=== PATIENT | female | born 1940 | race Native Hawaiian/Other Pacific Islander ===

== ENCOUNTER 2022-03-08 11:01 | Emergency (ER) | payer OTHER ==
[~2022-03-08] VITALS: Ht 152.4 cm; Wt 40.8 kg
[2022-03-08 11:01] VITALS: BP 112/69; TEMP 97.9
[2022-03-08 12:03] LABS: PLATELET COUNT 384 K/uL (152-353)
[2022-03-08 12:10] LABS: POTASSIUM 3.7 mmol/L (3.6-5.2)
[2022-03-08] MEDS ORDERED: DOK100 M1 PO (15:04)
[2022-03-08] MEDS ORDERED: MIRALAX MIX-IN17 GM PO (15:04)
[2022-03-08] MEDS ORDERED: TRAMADOL HYDROC50 MG PO (15:05)
[2022-03-08] MEDS ORDERED: KLOR-CON M1010 MEQ PO (15:05)
[2022-03-08] MEDS ORDERED: SENNA PLUS 50-81 CAP PO (15:06)
== END 2022-03-08 13:00 | disposition other institution (70) ==
LOC: ED 11:01
PROVIDERS: Family Medicine
DX: F03.91 Unspecified dementia, unspecified severity, with behavioral disturbance (principal); F05 Delirium due to known physiological condition; Z91.83 Wandering in diseases classified elsewhere; K64.4 Residual hemorrhoidal skin tags; Z11.52 Encounter for screening for COVID-19; Z04.6 Encounter for general psychiatric examination, requested by authority
CPT/HCPCS: 80053; 80307; 81002; 85027; 87635; 93005; 99283; U0003

== ENCOUNTER 2022-03-25 10:12 | Inpatient (IN) | payer OTHER ==
[~2022-03-25 10:12] MED LIST: DOK100 M1 PO; KLOR-CON M1010 MEQ PO; MIRALAX MIX-IN17 GM PO; SENNA PLUS 50-81 CAP PO; TRAMADOL HYDROC50 MG PO
[2022-03-25] MEDS ORDERED: DOCU100C10 PO (10:17)
[2022-03-25] MEDS ORDERED: CHOL100034 PO (10:17)
[2022-03-25] MEDS ORDERED: FOLI1TAB26 PO (10:17)
[2022-03-25] MEDS ORDERED: HYDR25SU3 RE (10:18)
[2022-03-25] MEDS ORDERED: MIRALAX 17GM PAK PO (10:21)
[2022-03-25] MEDS ORDERED: POTA10CA3 PO (10:21)
[2022-03-25] MEDS ORDERED: ULTRAM 50MG TAB PO (10:21)
[2022-03-25] MEDS ORDERED: LORA0.5T17 PO (10:21)
== END 2022-04-23 10:56 | disposition still patient (30) ==
LOC: PAVB 10:12
PROVIDERS: ADMIT Family Medicine; ATTEND Family Medicine
CPT/HCPCS: 94664

== ENCOUNTER → 2022-03-26 | Outpatient (CLI) | payer OTHER ==
[~2022-03-26] MED LIST changes: +CHOL100034 PO; +DOCU100C10 PO; +FOLI1TAB26 PO; +HYDR25SU3 RE; +LORA0.5T17 PO; +MIRALAX 17GM PAK PO; +POTA10CA3 PO; +ULTRAM 50MG TAB PO
[2022-03-26 07:32] LABS: PLATELET COUNT 275 K/uL (152-353)
[2022-03-26 08:44] LABS: POTASSIUM 4.1 mmol/L (3.6-5.2)
[2022-03-27 16:38] LABS: PLATELET COUNT 313 K/uL (152-353)
[2022-03-27 17:13] LABS: POTASSIUM 3.6 mmol/L (3.6-5.2)
== END ==
LOC: RAD 07:14 → LAB 07:14
PROVIDERS: ATTEND Family Medicine
DX: F03.911 Unspecified dementia, unspecified severity, with agitation (principal); Z78.0 Asymptomatic menopausal state; Z79.899 Other long term (current) drug therapy
CPT/HCPCS: 80053; 80061; 82306; 82746; 85027; 87015; 87045; 87081; 87324; 87328; 87329; 87449; 87502; 87899

== ENCOUNTER 2022-03-28 01:14 | Emergency (ER) | payer OTHER ==
[~2022-03-28] VITALS: Ht 154.9 cm; Wt 40.4 kg
[2022-03-28 02:14] LABS: POTASSIUM 3.7 mmol/L (3.6-5.2)
[2022-03-28 02:18] LABS: PLATELET COUNT 298 K/uL (152-353)
[2022-03-28 06:45] VITALS: BP 86/48; TEMP 98
== END 2022-03-28 06:45 | disposition home or self-care (01) ==
LOC: ED 01:14
PROVIDERS: Emergency Medicine Emergency Medical Services
DX: J20.9 Acute bronchitis, unspecified (principal); N39.0 Urinary tract infection, site not specified; Z20.822 Contact with and (suspected) exposure to COVID-19
CPT/HCPCS: 36415; 36600; 80053; 81000; 82805; 83735; 84484; 85027; 87040; 87077; 87086; 87088; 87186; 87635; 93005; 96360; 96365; 99284; J0696; U0003

== ENCOUNTER 2022-04-09 09:07 | Outpatient (CLI) | payer OTHER ==
[~2022-04-09] VITALS: Ht 160 cm; Wt 50.8 kg
== END 2022-04-09 20:30 | disposition home or self-care (01) ==
LOC: US 09:07
PROVIDERS: ATTEND Family Medicine
DX: N63.10 Unspecified lump in the right breast, unspecified quadrant (principal); R92.2 Inconclusive mammogram

== ENCOUNTER 2022-04-23 11:19 | Inpatient (IN) | payer OTHER | END 2022-05-23 10:40 | disposition still patient (30) | LOC: PAVB 11:19 | PROVIDERS: ADMIT Family Medicine; ATTEND Family Medicine ==

== ENCOUNTER 2022-05-07 10:19 | Outpatient (CLI) | payer OTHER | END 2022-05-07 19:59 | disposition home or self-care (01) | LOC: US 10:19 | PROVIDERS: ATTEND Family Medicine | DX: R10.84 Generalized abdominal pain (principal) ==

== ENCOUNTER 2022-06-07 09:35 | Emergency (ER) | payer OTHER ==
[~2022-06-07] VITALS: Ht 165.1 cm; Wt 68.0 kg
== END 2022-06-07 12:50 | disposition expired ==
LOC: ED 09:38
PROC: 0BH17EZ Insertion of Endotracheal Airway into Trachea, Via Natural or Artificial Opening (ICD-10-PCS; principal; 2022-06-07)
PROC: 5A1221J Performance of Cardiac Output, Continuous, Automated (ICD-10-PCS; 2022-06-07)
PROC: 0YHB33Z Insertion of Infusion Device into Left Lower Extremity, Percutaneous Approach (ICD-10-PCS; 2022-06-07)
DX: I46.9 Cardiac arrest, cause unspecified (principal)
CPT/HCPCS: 31500; 92950; 96360; 96374; 96375; 99285; J0171; J0461; J2250; J3490